=== PATIENT | male | born 1985 | race Two or more races ===

== ENCOUNTER 2024-09-18 10:41 | Emergency (ER) | payer OTHER ==
[~2024-09-18] VITALS: Ht 172.7 cm; Wt 99.8 kg
[2024-09-18 11:33] VITALS: BP 146/90; TEMP 98.1; O2SAT 96
== END 2024-09-18 11:34 ==
LOC: EDUNIT# 10:41 → ER 10:52
DX: Z02.89 Encounter for other administrative examinations (principal); F20.9 Schizophrenia, unspecified; F84.0 Autistic disorder; F19.10 Other psychoactive substance abuse, uncomplicated